=== PATIENT | male | born 1970 | race Caucasian/White ===

== ENCOUNTER → 2018-07-25 | Day surgery (SDC) | payer OTHER ==
[~2018-07-25] VITALS: Ht 180.3 cm; Wt 89.8 kg
[~2018-07-25] MED LIST: ARTHROTEC50 MG PO; AUGMENTIN 875-875 MG PO; CLEOCIN HCL300 MG PO; CYCLOBENZAPRINE5 M3 PO; DOXYCYCLINE100 MG PO; GAVISCON ES TA1 EACH PO; IBU800 MG PO; MEDROL DOSEPAK4 MG PO; NEXIUM40 MG PO; NORCO 10-325 T1 EACH PO; NORCO 5-325 TA1 EACH PO; QUETIAPINE FUM100 M3 PO; VOLTAREN50 M1 PO
--- NOTE | ~2018-07-25 | O ---
[place], [place] OPERATIVE NOTE NAME: MARY ELLEN DRIVER UNIT #: [id number] ROOM: DOCTOR: LILLIE ALBERTS MD BIRTHDATE: [birth year] DOS: 07/25/2018 GASTROENDOSCOPIC REPORT This gentleman is a 47-year-old who has presented with periodic rectal bleed and concern about the above, especially that his father end-up with colonic carcinoma. ALLERGIES: No known medication. SOCIAL HISTORY: Nonsmoker, rare alcohol consumer. PAST MEDICAL HISTORY: Bradycardia, hypertension, bipolar schizoaffective disorder. PAST SURGICAL HISTORY: Pacemaker and minor operation. FAMILY HISTORY: Father with colon carcinoma. PROCEDURE: Today's procedure part of investigation colonoscopy plus piecemeal polypectomy and photographic series. PREMEDICATION: Propofol. SCOPE: Olympus folding colonoscope 10L video. REPORT: After putting the patient in left lateral position and application of lubricant to the scope, the scope was introduced. Thereafter, under direct visualization, I advanced through the length of colon without difficulty. Base of cecum was photographed ileocecal valve was defined. Scope was gradually withdrawn from ascending, transverse, descending colon back to the rectal pouch. A sessile polypoid lesion with piecemeal polypectomy removed. GI reflection of the scope was performed. No lesions was noticed. A small hemorrhoid was identified. Air was suctioned out. The patient was extubated, tolerated the procedure well. IMPRESSION: Sessile colonic polyp, status post piecemeal polypectomy. Very small hemorrhoids. PLAN AND DISCUSSION: Anusol-HC suppository p.r.n. to be utilized. High fiber diet. ACTIVITY: Ad charles. FOLLOWUP: Routinely with you in office, p.r.n. visit with us in [facility]. I appreciate the referral. [place], [place] OPERATIVE NOTE NAME: MARY ELLEN DRIVER UNIT #: [id number] ROOM: DOCTOR: LILLIE ALBERTS MD BIRTHDATE: [birth year] LILLIE ALBERTS MD CM:OPRECORD:OPERATIVE NOTE [id number] LILLIE ALBERTS MD 07/25/18 1231 interface
[2018-07-25 10:21] VITALS: BP 144/94
[2018-07-25 10:43] VITALS: BP 117/81
[2018-07-25 10:58] VITALS: BP 127/88
[2018-07-25 11:13] VITALS: BP 126/90
== END | disposition home or self-care (01) ==
LOC: SDC 07-20 12:30
DX: K62.1 Rectal polyp (principal); K62.5 Hemorrhage of anus and rectum; K64.9 Unspecified hemorrhoids; I10 Essential (primary) hypertension; K21.9 Gastro-esophageal reflux disease without esophagitis; F20.9 Schizophrenia, unspecified; F31.9 Bipolar disorder, unspecified; Z95.0 Presence of cardiac pacemaker; Z80.0 Family history of malignant neoplasm of digestive organs

== ENCOUNTER → 2018-09-07 | Day surgery (SDC) | payer OTHER ==
[~2018-09-07] VITALS: Ht 180.3 cm; Wt 93.0 kg
--- NOTE | ~2018-09-07 | O ---
[place], [place] OPERATIVE NOTE NAME: MARY ELLEN DRIVER UNIT #: [id number] ROOM: DOCTOR: LILLIE ALBERTS MD BIRTHDATE: [birth year] DOS: 09/07/2018 HISTORY OF PRESENT ILLNESS: A 48-year-old patient presented with chief complaint of persistent dyspepsia despite Protonix 40 mg one every day, upset stomach persistently. The patient drinks carbonated soda Mountain Dew per night, also chewing tobacco. PAST SURGICAL HISTORY: Pacemaker lower back, facial repair. PAST MEDICAL HISTORY: Bradycardia, hypertension, anxiety, bipolar. SOCIAL HISTORY: Nonsmoker, however, chewing tobacco, nonalcohol consumer. PROCEDURE: Today's procedure part of investigation is panendoscopy plus biopsies. PREMEDICATION: Propofol. SCOPE: Olympus forward-viewing gastroscope Q10 video. REPORT: After putting the patient in the left lateral position, application of lubricant to the stool, scope was introduced. Thereafter under direct visualization, advanced through the length of esophagus at the esophagogastric junction. Distal esophagitis was noticed. Biopsies obtained. Gastric pouch was entered. Gastritis noticed. Antral biopsy obtained. Duodenal bulb, second and third part within normal limits. The patient extubated and tolerated the procedure well. IMPRESSION: Distal esophagitis, gastritis, status post biopsy. PLAN: The patient advised to abstain of drinking carbonated sodas that he is and abstaining from chewing tobacco that he is, and I am going to change his Protonix since it is not helping him any longer. We are going to switch to Nexium 40 mg daily, Gaviscon Extra Strength 1 tablet to be chewed in the morning after breakfast, one tablet at bedtime before going to bed, antireflux with elevation of the head of the bed 6 inch all time and clinical reassessment. Awaiting biopsy results. Thank you very much indeed. [place], [place] OPERATIVE NOTE NAME: MAR YELLEN DRIVER UNIT #: [id number] ROOM: DOCTOR: LILLIE ALBERTS MD BIRTHDATE: [birth year] LILLIE ALBRETS MD CM:OPRECORD:OPERATIVE NOTE [id number] LILLIE ALBERTS MD 09/07/18 1422 interface
[2018-09-07 11:30] VITALS: BP 130/89
[2018-09-07 13:53] VITALS: BP 118/78
[2018-09-07 14:10] VITALS: BP 111/75
[2018-09-07 14:23] VITALS: BP 121/87
== END | disposition home or self-care (01) ==
LOC: SDC 09-04 12:30
DX: K29.50 Unspecified chronic gastritis without bleeding (principal); K20.8 Other esophagitis; I10 Essential (primary) hypertension; F31.9 Bipolar disorder, unspecified; F41.9 Anxiety disorder, unspecified; F17.220 Nicotine dependence, chewing tobacco, uncomplicated; Z98.890 Other specified postprocedural states; Z95.0 Presence of cardiac pacemaker; Z79.899 Other long term (current) drug therapy

== ENCOUNTER 2019-07-25 14:44 | Emergency (ER) | payer OTHER ==
[~2019-07-25] VITALS: Wt 92.5 kg
[2019-07-25 15:18] LABS: BILIRUBIN NEGATIVE (NEGATIVE); BLOOD 1+ (NEGATIVE); CLARITY SL CLOUDY (CLEAR); COLOR YELLOW (YELLOW); GLUCOSE NEGATIVE (NEGATIVE); KETONE NEGATIVE (NEGATIVE); LEUKO ESTERASE NEGATIVE (NEGATIVE); NITRITE NEGATIVE (NEGATIVE); PH 7.5 (5.0-9.0); SPECIFIC GRAVITY 1.015 (1.005-1.030); UROBILINOGEN 0.2 E.U./dl (0.2-1.0)
[2019-07-25 15:27] LABS: BACTERIA TRACE; EPITHELIAL CELLS 0-2
[2019-07-25 15:57] LABS: BASO # 0.1 10*3/uL (0.0-0.1); BASO % 0.6 % (0.0-1.0); EOS # 0.1 10*3/uL (0.0-0.4); EOS % 0.7 % (1.0-4.0); HEMATOCRIT 48.2 % (42.0-52.0); HEMOGLOBIN 16.2 g/dl (14.0-18.0); LYMPH # 1.5 10*3/uL (1.3-4.4); LYMPH % 17.1 % (27.0-41.0); MEAN CELL VOLUME 89.3 fl (80.0-94.0); MEAN CORPUSCULAR HGB CONC 33.6 g/dl (33.0-37.0); MEAN PLATELET VOLUME 9.3 fl (9.6-12.3); MONO # 0.7 10*3/uL (0.1-1.0); MONO % 8.3 % (3.0-9.0); NEUT # 6.2 10*3/uL (2.3-7.9); NEUT % 71.9 % (47.0-73.0); PLATELET COUNT AUTOMATED 216 10*3/uL (130-400); RED CELL DISTRI WIDTH 13.4 % (0-14.5); WHITE BLOOD COUNT 8.6 10*3/uL (4.8-10.8)
[2019-07-25 16:06] LABS: INTERNATIONAL NORM RATIO 0.9 (2.0-3.5)
[2019-07-25 16:12] LABS: ALBUMIN 3.9 gm/dl (3.1-4.5); ALKALINE PHOSPHATASE 81 U/L (45-117); BUN 12 mg/dl (7-24); CHLORIDE 109 mmol/L (98-107); CREATININE 1.14 mg/dL (0.70-1.30); POTASSIUM 3.9 mmol/L (3.5-5.1); SGOT/AST 12 IU/L (3-35); SGPT/ALT 23 U/L (12-78); SODIUM 140 mmol/L (136-145); TOTAL PROTEIN 7.4 gm/dL (6.4-8.2)
== END 2019-07-25 17:10 | disposition home or self-care (01) ==
LOC: ED 14:44
PROVIDERS: Nurse Practitioner Family
DX: S30.1XXA Contusion of abdominal wall, initial encounter (principal); R31.9 Hematuria, unspecified; Z87.442 Personal history of urinary calculi; Z79.899 Other long term (current) drug therapy; W22.8XXA Striking against or struck by other objects, initial encounter; Y93.I9 Activity, other involving external motion; Y92.488 Other paved roadways as the place of occurrence of the external cause; Y99.8 Other external cause status